=== PATIENT | male | born 1960 | race Caucasian/White ===

== ENCOUNTER 2016-07-24 01:06 | Inpatient (IN) | payer MEDICARE ==
--- NOTE | 2016-07-24 01:36 | ER Document Report ---
ED Medical Screen (RME) - General Stated Complaint: LACERATIONS SWELLING OF LEGS Time seen by provider: 01:31 Mode of Arrival: Wheelchair Information source: Patient Notes: 56-year-old male presents to ED after not responding to his son for 4 days his and have not heard from him for 2 days. When someone went over to his house he was covered in blood make it and incoherent. He is able to speak to me by these in the RME son states he does have a history of diabetes. The last time he was like this in [place] he found out he had diabetes and he was admitted to the hospital instructed to the bed for week. He is also on several pain medicines son states he cannot find any of his medicines. Son states he is on pain medicine for some type of spinal procedures several years ago. He walks with a walker at home but he lives alone. Son states when he first went to the house he was not responding but now he is talking. He is aware he is at the hospital now he and his aware who his son is but is not able to tell me that time a year. I have greeted and performed a rapid initial assessment of this patient. A comprehensive ED assessment and evaluation of the patient, analysis of test results and completion of medical decision making process will be conducted by an additional ED providers. Physical Exam - Vital signs Vitals: Temp Pulse Resp BP Pulse Ox 97.4 F 110 H 16 115/53 L 97 07/24/16 01:12 07/24/16 01:12 07/24/16 01:12 07/24/16 01:12 07/24/16 01:12 Course - Vital Signs Vital signs: Temp Pulse Resp BP Pulse Ox 97.4 F 110 H 16 115/53 L 97 07/24/16 01:12 07/24/16 01:12 07/24/16 01:12 07/24/16 01:12 07/24/16 01:12
[2016-07-24 02:40] LABS: ABSOLUTE EOSINOPHILS # (AUTO) 0.1 10^3/uL (0.0-0.6); ABSOLUTE LYMPHOCYTES (AUTO) 0.7 10^3/uL (0.5-4.7); ABSOLUTE MONOCYTES (AUTO) 1.3 10^3/uL (0.1-1.4); ABSOLUTE NEUT (AUTO) 6.4 10^3/uL (1.7-8.2); BASOPHILS % (AUTO) 0.3 % (0-2); EOSINOPHILS % (AUTO) 0.9 % (0-6); HEMATOCRIT 36.4 % (37.9-51.0); HEMOGLOBIN 12.2 g/dL (13.5-17.0); HGB HCT DIFFERENCE 0.2; LYMPHOCYTES % (AUTO) 8.1 % (13-45); MEAN CORPUSCULAR HEMOGLOBIN 34.5 pg (27.0-33.4); MEAN CORPUSCULAR HGB CONC 33.4 g/dL (32.0-36.0); MEAN CORPUSCULAR VOLUME 103 fl (80-97); MONOCYTES % (AUTO) 15.3 % (3-13); RED BLOOD COUNT 3.52 10^6/uL (4.35-5.55); RED CELL DISTRIBUTION WIDTH 14.8 % (11.5-14.0); SEGMENTED NEUTROPHILS % (AUTO) 75.4 % (42-78); WHITE BLOOD COUNT 8.4 10^3/uL (4.0-10.5)
[2016-07-24 02:45] LABS: APPEARANCE,URINE SLIGHTLY-CLOUDY; BILIRUBIN,URINE NEGATIVE (NEGATIVE); GLUCOSE, URINE NEGATIVE (NEGATIVE); KETONES,URINE TRACE mg/dL (NEGATIVE); LEUKOCYTE ESTERASE,URINE TRACE (NEGATIVE); NITRITE,URINE NEGATIVE (NEGATIVE); PROTEIN,URINE 30 mg/dL (NEGATIVE); URINE SPECIFIC GRAVITY 1.012; UROBILINOGEN,URINE NEGATIVE mg/dL (<2.0)
[2016-07-24 02:52] LABS: ALANINE AMINOTRANSFERASE 108 U/L (21-72); ALBUMIN 4.3 g/dL (3.5-5.0); ALKALINE PHOSPHATASE 123 U/L (38-126); ASPARTATE AMINO TRANSFERASE 110 U/L (17-59); BILIRUBIN,TOTAL 1.3 mg/dL (0.2-1.3); CALCIUM 8.9 mg/dL (8.4-10.2); CHLORIDE 105 mmol/L (98-107); CREATININE RESULT 3.94 mg/dL (0.52-1.25); GLUCOSE 134 mg/dL (75-110); LIPASE 132.2 U/L (23-300); TOTAL PROTEIN 9.1 g/dL (6.3-8.2)
[2016-07-24 02:56] LABS: ALCOHOL < 10 mg/dL (NONE DETECTED)
[2016-07-24 03:01] LABS: URINE BARBITURATES SCREEN NEGATIVE; URINE METHADONE SCREEN NEGATIVE; URINE OPIATES LOW UNCONFIRMED POSITIVE; URINE PHENCYCLIDINE SCREEN NEGATIVE
[2016-07-24 03:03] LABS: CARBON DIOXIDE 13 mmol/L (22-30)
[2016-07-24 03:20] LABS: ANION GAP 27 (5-19)
[2016-07-24 03:24] LABS: BLOOD UREA NITROGEN 135 mg/dL (7-20)
[2016-07-24 03:26] LABS: POTASSIUM 6.3 mmol/L (3.6-5.0)
[2016-07-24] MEDS ORDERED: NORMAL SALINE 1000 ML 1,000 ML IV ONE ×2 (07:05)
[2016-07-24] MEDS ORDERED: DEXTROSE 50%-WATER 25 GM/50 ML DISP.SYRIN IV ONE (07:19)
[2016-07-24] MEDS ORDERED: INSULIN REG, HUMAN 100 UNIT/ML 3 ML VIAL (PYX) IV ONE (07:19)
[2016-07-24] MEDS ORDERED: CALCIUM GLUCONATE 1000 MG/10 ML INJ IV ONE (07:19)
--- NOTE | 2016-07-24 08:16 | EKG REPORT ---
SEVERITY:- BORDERLINE ECG - SINUS TACHYCARDIA BORDERLINE PROLONGED QT INTERVAL : Confirmed by: Silva Gastelum MD 24-Jul-2016 08:16:12
[2016-07-24 09:00] LABS: PROTHROMBIN TIME 15.1 SEC (11.4-15.4)
[2016-07-24 09:01] LABS: PARTIAL THROMBOPLASTIN TIME 35.3 SEC (23.5-35.8)
[2016-07-24 09:16] LABS: ALCOHOL < 10 mg/dL (NONE DETECTED)
[2016-07-24 09:25] LABS: CREATINE KINASE 2411 U/L (55-170)
[2016-07-24 09:27] LABS: TROPONIN I 0.041 ng/mL
[2016-07-24] MEDS ORDERED: NORMAL SALINE 1000 ML 1,000 ML IV PRN ×2 (09:58→14:03)
[2016-07-24 10:19] LABS: VENOUS BLOOD BASE EXCESS -10.8 mmol/L; VENOUS BLOOD HCO3 15.9 mmol/L (20-32); VENOUS BLOOD PCO2 38.6 mmHg (35-63); VENOUS BLOOD PH 7.23 (7.30-7.42)
--- NOTE | 2016-07-24 10:44 | ER Document Report ---
ED General - General Chief Complaint: Altered Mental Status Stated Complaint: LACERATIONS SWELLING OF LEGS Mode of Arrival: Wheelchair - HPI Patient complains to provider of: altered mental status Notes: Patient's coming in for evaluation of altered mental status. According son at bedside patient recently moved from [place]. Patient has a history of alcohol abuse diabetes hypertension chronic pain and takes morphine. Possibility other medical problems this is very limited as to son does not know the patient's full medical history Patient was on her to offer approximate 2 days the police recall found the patient naked on his couch with multiple abrasions to himself lying in some blood. Patient was found confused transport to the ER for further evaluation. Upon my evaluation patient is confused a no 1-2 patient is alert. GCS is 14. Patient has had multiple abrasions with bilateral lower leg edema. Patient has no complaints Past Medical History - General Information source: Patient - Social History Smoking Status: Unknown if Ever Smoked Family History: Reviewed & Not Pertinent Endocrine Medical History: Reports: Hx Diabetes Mellitus Type 2 Renal/ Medical History: Denies: Hx Peritoneal Dialysis Past Surgical History: Reports: Hx Orthopedic Surgery - Immunizations Hx Diphtheria, Pertussis, Tetanus Vaccination: Yes Review of Systems - Review of Systems -: Yes ROS unobtainable due to patient's medical condition - Altered mental status Physical Exam - Vital signs Vitals: Temp Pulse Resp BP Pulse Ox 97.4 F 110 H 16 115/53 L 97 07/24/16 01:12 07/24/16 01:12 07/24/16 01:12 07/24/16 01:12 07/24/16 01:12 Interpretation: Tachycardic - General General appearance: Other - Patient is unkempt a she will multiple abrasions patient smells bad - HEENT Head: Normocephalic, Atraumatic Eyes: Normal Pupils: PERRL - Respiratory Respiratory status: No respiratory distress Chest status: Nontender Breath sounds: Normal Chest palpation: Normal - Cardiovascular Rhythm: Regular Heart sounds: Normal auscultation Murmur: No - Abdominal Inspection: Normal Distension: Fluid wave - Ascites Bowel sounds: Normal Tenderness: Nontender Organomegaly: No organomegaly - Rectal Stool: Heme positive - Grossly negative on rectal exam light brown stool Hemorrhoids: None Prostate: Normal - Genitourinary Inspection: Normal Tenderness: Nontender Cremasteric reflex: Normal Scrotum: Normal Notes: Patient with erythema in the bilateral groin region consistent with possible harsh yeast infection or signs of overt gangrene for Rohan's gangrene - Back Back: Normal, Nontender - Extremities General upper extremity: Nontender, Normal color, Normal ROM, Normal temperature , Other. No: Normal inspection - multiple superficial abrasions General lower extremity: Nontender, Edema - 2+, Normal ROM, Normal temperature, Normal weight bearing. 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 More likely this is from dehydration and being immobile. Patient was given calcium gluconate IV fluids insulin and dextrose. 4 hyperkalemia. Aggressive fluid hydrated was begun. I did perform a CT of the patient's head and abdomen these were negative for any acute pathology. Patient 's case was referred to hospitals for further evaluation - Vital Signs Vital signs: Temp Pulse Resp BP Pulse Ox 97.4 F 110 H 12 116/58 L 96 07/24/16 01:12 07/24/16 01:12 07/24/16 12:01 07/24/16 12:01 07/24/16 12:01 - Laboratory Result Diagrams: 07/24/16 02:19 07/24/16 02:19 Laboratory results interpreted by me: 07/24/16 07/24/16 07/24/16 01:37 01:47 02:19 RBC 3.52 L Hgb 12.2 L Hct 36.4 L MCV 103 H MCH 34.5 H RDW 14.8 H Lymphocytes % 8.1 L Monocytes % 15.3 H VBG pH VBG HCO3 Potassium Carbon Dioxide Anion Gap BUN Creatinine Est GFR ( Amer) Est GFR (Non-Af Amer) Glucose POC Glucose 125 H 128 H Hemoglobin A1c % AST ALT Creatine Kinase CK-MB (CK-2) Total Protein Urine Protein Urine Ketones Urine Blood Ur Leukocyte Esterase Salicylates Acetaminophen 07/24/16 07/24/16 07/24/16 02:19 02:19 08:30 RBC Hgb Hct MCV MCH RDW Lymphocytes % Monocytes % VBG pH VBG HCO3 Potassium 6.3 H* Carbon Dioxide 13 L Anion Gap 27 H BUN 135 H Creatinine 3.94 H Est GFR ( Amer) 19 L Est GFR (Non-Af Amer) 16 L Glucose 134 H POC Glucose Hemoglobin A1c % 6.2 H AST 110 H ALT 108 H Creatine Kinase CK-MB (CK-2) Total Protein 9.1 H Urine Protein 30 H Urine Ketones TRACE H Urine Blood MODERATE H Ur Leukocyte Esterase TRACE H Salicylates Acetaminophen < 10 L 07/24/16 07/24/16 07/24/16 08:30 08:30 09:35 RBC Hgb Hct MCV MCH RDW Lymphocytes % Monocytes % VBG pH 7.23 L VBG HCO3 15.9 L Potassium Carbon Dioxide Anion Gap BUN Creatinine Est GFR ( Amer) Est GFR (Non-Af Amer) Glucose POC Glucose Hemoglobin A1c % AST ALT Creatine Kinase 2411 H CK-MB (CK-2) 23.00 H Total Protein Urine Protein Urine Ketones Urine Blood Ur Leukocyte Esterase Salicylates < 1.0 L Acetaminophen < 10 L Critical Care Note - Critical Care Note Total time excluding time spent on procedures (mins): 35 Comments: Multiple evaluations for severe dehydration and altered mental status hyperkalemia Discharge - Discharge Clinical Impression: Abrasions of multiple sites, Uremia, Elevated CK, chronic opiate use, Hyperkalemia Altered mental status Qualifiers: Altered mental status type: unspecified Qualified Code(s): R41.82 - Altered mental status, unspecified Acute renal failure Qualifiers: Acute renal failure type: unspecified Qualified Code(s): N17.9 - Acute kidney failure, unspecified Chronic back pain Qualifiers: Back pain location: back pain in unspecified location Back pain laterality: unspecified Qualified Code(s): M54.9 - Dorsalgia, unspecified Disposition: ADMITTED INPATIENT Admitting Provider: Hospitalist [facility] Unit Admitted: [facility]
[2016-07-24] MEDS ORDERED: ONDANSETRON HCL INJ/PF 4 MG/2 ML SDV IV PRN (14:03)
[2016-07-24] MEDS ORDERED: DEXTROSE 50%-WATER 25 GM/50 ML DISP.SYRIN IV PRN ×2 (14:16)
[2016-07-24] MEDS ORDERED: DEXTROSE 40% GEL 15 GM TUBE PO PRN ×2 (14:16)
[2016-07-24] MEDS ORDERED: GLUCAGON,HUMAN RECOMB 1 MG INJ IM PRN (14:16)
--- NOTE | 2016-07-24 14:45 | PDOC H&P ---
History of Present Illness Admission Date/PCP: 07/24/16 11:29 Patient complains of: Altered mental status History of Present Illness: LAMONTE PENN is a 56 year old male, with history of alcohol abuse, narcotic dependency due to chronic pain syndrome brought about by injury to the spine and neck fusion was found at home by the family on the floor with altered mental status. Apparently the patient has not been responding to his phone calls. Likewise he has not called anyone in the family which is unusual for him for the last 2 days. Eventually his son went to his house and he was found on the floor unresponsive. There are scattered blood on the floor noted as the patient's scratches his skin due to chronic neuropathy. Patient does not remember the episode. For the past 3 days however he feels lightheaded and dizzy. He does not remember falling. He denies chest pain or shortness of breath. He denies diarrhea or nausea or vomiting. Likewise no melena or hematochezia or hematemesis. He was brought to the emergency room where he was given intravenous fluids. He started to improve and was able to give some information as stated above. However he remains confused. Daughter is at bedside who provided most of the information. In the emergency room creatinine was elevated as well as potassium. Patient was given insulin and D50, IV fluid hydration, and calcium intravenously. He was then referred for admission. Past Medical History Past Medical History: Medication reconciliation pending verification from the patient's pharmacist. Family reports the patient takes metformin, Requip, MS Contin, morphine. Cardiac Medical History: Reports: Hypertension Neurological Medical History: Reports: Other - Restless leg syndrome Endocrine Medical History: Reports: Diabetes Mellitus Type 2 Musculoskeltal Medical History: Reports: Other - Chronic pain syndrome with neuropathic pain Skin Medical History: Reports: Psoriasis Psychiatric Medical History: Reports: Other - Alcohol and narcotic use Past Surgical History Past Surgical History: Reports: Orthopedic Surgery - Spinal fusion cervical spine Social History Information Source: Relative Smoking Status: Current Every Day Smoker Frequency of Alcohol Use: Heavy Hx Recreational Drug Use: No - denies Drugs: None - Advance Directive Resuscitation Status: Full Code Family History Family History: CVA, Other - Heart disease Parental Family History Reviewed: Yes Children Family History Reviewed: Yes Sibling(s) Family History Reviewed.: Yes Review of Systems Constitutional: PRESENT: weakness - Generalized. ABSENT: chills, fever(s), headache(s), night sweats, weight gain, weight loss Eyes: ABSENT: visual disturbances Ears: ABSENT: hearing changes Nose, Mouth, and Throat: PRESENT: other - Dryness in the throat. ABSENT: mouth pain, sore throat Cardiovascular: ABSENT: chest pain, dyspnea on exertion, edema, orthropnea, palpitations Respiratory: ABSENT: cough, dyspnea, hemoptysis Gastrointestinal: ABSENT: abdominal pain, constipation, diarrhea, hematemesis, hematochezia, melena, nausea, vomiting Genitourinary: ABSENT: dysuria, hematuria Musculoskeletal: ABSENT: joint swelling Integumentary: PRESENT: pruritus - Generalized, rash - Generalized. ABSENT: wounds Neurological: PRESENT: dizziness, weakness - Generalized. ABSENT: abnormal gait , abnormal speech, confusion, focal weakness, syncope Psychiatric: ABSENT: anxiety, depression, homidical ideation, suicidal ideation Endocrine: ABSENT: cold intolerance, heat intolerance, polydipsia, polyuria Hematologic/Lymphatic: PRESENT: easy bleeding. ABSENT: easy bruising Physical Exam Vital Signs: Temp Pulse Resp BP Pulse Ox 97.4 F 110 H 12 116/58 L 96 07/24/16 01:12 07/24/16 01:12 07/24/16 12:01 07/24/16 12:01 07/24/16 12:01 Intake & Output 07/23/16 07/24/16 07/25/16 06:59 06:59 06:59 Output Total 650 Balance -650 General appearance: PRESENT: no acute distress, cooperative, disheveled Head exam: PRESENT: normocephalic Eye exam: PRESENT: EOMI, PERRLA Ear exam: PRESENT: normal external ear exam. ABSENT: drainage Mouth exam: PRESENT: dry mucosa, neck supple, tongue midline Throat exam: PRESENT: post pharyngeal erythema. ABSENT: tonsillar erythema, tonsillar exudate Neck exam: ABSENT: carotid bruit, JVD, thyromegaly Respiratory exam: PRESENT: clear to auscultation minor, unlabored. ABSENT: rales , rhonchi, wheezes Cardiovascular exam: PRESENT: RRR, tachycardia. ABSENT: diastolic murmur, rubs , systolic murmur Pulses: PRESENT: normal dorsalis pedis pul Vascular exam: PRESENT: normal capillary refill GI/Abdominal exam: PRESENT: distended, hyperactive bowel sounds, soft. ABSENT: guarding, mass, organolmegaly - Exam is limited to the abdominal, rebound, tenderness Rectal exam: PRESENT: deferred Extremities exam: PRESENT: full ROM, other - Trace lower extremity edema bilateral. ABSENT: calf tenderness, clubbing Neurological exam: PRESENT: alert, awake, oriented to person, oriented to situation. ABSENT: oriented to place, oriented to time Psychiatric exam: PRESENT: appropriate affect, normal mood. ABSENT: homicidal ideation, suicidal ideation Skin exam: PRESENT: dry, warm, other - Redness noted rash in both groins bilaterally, multiple scratches both upper and lower extremities bilaterally with dried blood. ABSENT: cyanosis, rash Results Impressions: Chest X-Ray 07/24/16 07:39 IMPRESSION: Cardiomegaly. Lower cervical fusion. No acute findings Head CT 07/24/16 07:39 IMPRESSION: No acute abnormality in the brain. Limited or Localized CT 07/24/16 07:39 IMPRESSION: Cirrhosis. Small umbilical hernia. No acute findings. Assessment & Plan - Diagnosis (1) Acute renal failure Qualifiers: Acute renal failure type: unspecified Qualified Code(s): N17.9 - Acute kidney failure, unspecified Is this a current diagnosis for this admission?: Yes (2) Altered mental status Qualifiers: Altered mental status type: unspecified Qualified Code(s): R41.82 - Altered mental status, unspecified Is this a current diagnosis for this admission?: Yes (3) Hyperkalemia Is this a current diagnosis for this admission?: Yes (4) Chronic back pain Qualifiers: Back pain location: back pain in unspecified location Back pain laterality: unspecified Qualified Code(s): M54.9 - Dorsalgia, unspecified; G89.29 - Other chronic pain Is this a current diagnosis for this admission?: Yes (5) Elevated CK Is this a current diagnosis for this admission?: Yes (6) Abnormal urinalysis Is this a current diagnosis for this admission?: Yes (7) Heme positive stool Is this a current diagnosis for this admission?: Yes (8) Restless leg syndrome Is this a current diagnosis for this admission?: Yes (9) Type II diabetes mellitus Qualifiers: Diabetes mellitus complication status: with unspecified complications Diabetes mellitus care home insulin use: without exterminator helper termite use Qualified Code(s): E11.8 - Type 2 diabetes mellitus with unspecified complications Is this a current diagnosis for this admission?: Yes (10) Neuropathic pain Is this a current diagnosis for this admission?: Yes (11) Hypertension Qualifiers: Hypertension type: essential hypertension Qualified Code(s): I10 - Essential (primary) hypertension Is this a current diagnosis for this admission?: Yes (12) Psoriasis Is this a current diagnosis for this admission?: Yes - Time Time Spent: 50 to 70 Minutes - Plan Summary Plan Summary: The patient will be admitted to [facility]. We will hydrate the patient with normal saline. We will repeat check potassium and treat accordingly if it's still elevated. In the meantime I will consult nephrology. We will obtain a renal ultrasound. We will monitor creatinine. We will culture his urine and begin ceftriaxone. We will monitor for withdrawal. Begin supplemental thiamine and multivitamin. As needed Ativan will be given for withdrawal symptoms. We will put the patient on intravenous proton pump inhibitor. We will monitor hemoglobin and hematocrit. We will give vitamin A and D to the patient's rash on both upper and lower extremities. Lotrisone cream to the groin also be started. He will be on sliding scale insulin. DVT prophylaxis with heparin will be placed. Further testing depends on initial evaluation as outlined above.
[2016-07-24] MEDS ORDERED: PANTOPRAZOLE SODIUM 40 MG VIAL IV ONE (15:30)
[2016-07-24] MEDS ORDERED: CEFTRIAXONE 1 GM/D5W RTU 1 GM/50 ML RTUPB IV ONE (16:00)
[2016-07-24] MEDS: DOCUSATE SODIUM 100 MG CAPSULE PO SCH (16:42)
[2016-07-24] MEDS: OXYCODONE HCL IR 5 MG TABLET PO PRN ×2 (16:42→21:00)
[2016-07-24] MEDS: LORAZEPAM INJ 2 MG/1 ML VIAL IV PRN ×2 (17:02→21:10)
[2016-07-24 17:58] LABS: CALCIUM 8.4 mg/dL (8.4-10.2); CREATININE RESULT 2.42 mg/dL (0.52-1.25); GLUCOSE 143 mg/dL (75-110)
[2016-07-24] MEDS ORDERED: NORMAL SALINE 1000 ML 1,000 ML with THIAMINE HCL 100 MG, MVI, ADULT NO.1 WITH VIT K 10 ML IV PRN ×3 (18:00)
[2016-07-24 18:10] LABS: CARBON DIOXIDE 13 mmol/L (22-30); CHLORIDE 111 mmol/L (98-107); POTASSIUM 5.6 mmol/L (3.6-5.0); SODIUM 146.9 mmol/L (137-145)
[2016-07-24 18:14] LABS: ANION GAP 23 (5-19)
[2016-07-24 18:15] LABS: BLOOD UREA NITROGEN 105 mg/dL (7-20)
[2016-07-24] MEDS ORDERED: SODIUM POLYSTYRENE SULFONATE 15 GM/60 ML PO ONE (19:14)
[2016-07-24] MEDS ORDERED: ROPINIROLE HCL 2 MG TABLET PO SCH (23:59)
[2016-07-25] MEDS ORDERED: ROPINIROLE HCL 2 MG TABLET ONE (00:04)
[2016-07-25] MEDS: HEPARIN SOD (PORCINE) 5,000 UNIT/ML 1 ML SYRINGE SUBCUT SCH ×4 (01:56→22:15)
[2016-07-25] MEDS: LORAZEPAM INJ 2 MG/1 ML VIAL IV PRN ×4 (02:32→19:42)
[2016-07-25 06:25] LABS: ABSOLUTE BASOPHILS # (AUTO) 0.1 10^3/uL (0.0-0.2); ABSOLUTE EOSINOPHILS # (AUTO) 0.1 10^3/uL (0.0-0.6); ABSOLUTE LYMPHOCYTES (AUTO) 0.6 10^3/uL (0.5-4.7); BASOPHILS % (AUTO) 1.4 % (0-2); HEMATOCRIT 33.3 % (37.9-51.0); HEMOGLOBIN 11.4 g/dL (13.5-17.0); HGB HCT DIFFERENCE 0.9; MEAN CORPUSCULAR HEMOGLOBIN 35.2 pg (27.0-33.4); MEAN CORPUSCULAR HGB CONC 34.2 g/dL (32.0-36.0); MEAN CORPUSCULAR VOLUME 103 fl (80-97); MONOCYTES % (AUTO) 14.2 % (3-13); RED BLOOD COUNT 3.23 10^6/uL (4.35-5.55); RED CELL DISTRIBUTION WIDTH 15.1 % (11.5-14.0); SEGMENTED NEUTROPHILS % (AUTO) 74.4 % (42-78); WHITE BLOOD COUNT 6.7 10^3/uL (4.0-10.5)
[2016-07-25 06:46] LABS: CALCIUM 9.3 mg/dL (8.4-10.2); CHLORIDE 116 mmol/L (98-107); CREATININE RESULT 1.41 mg/dL (0.52-1.25); GLUCOSE 183 mg/dL (75-110)
[2016-07-25 07:07] LABS: BLOOD UREA NITROGEN 69 mg/dL (7-20)
[2016-07-25 07:18] LABS: CARBON DIOXIDE 13 mmol/L (22-30); SODIUM 153.1 mmol/L (137-145)
[2016-07-25 07:20] LABS: ANION GAP 24 (5-19); POTASSIUM 6.2 mmol/L (3.6-5.0)
[2016-07-25] MEDS ORDERED: 1/2 NORMAL SALINE 1,000 ML IV PRN (07:43)
[2016-07-25] MEDS ORDERED: INSULIN REG, HUMAN 100 UNIT/ML 3 ML VIAL (PYX) IV ONE ×2 (07:44→11:15)
[2016-07-25] MEDS ORDERED: DEXTROSE 50%-WATER 25 GM/50 ML DISP.SYRIN IV ONE ×3 (07:45→11:15)
[2016-07-25] MEDS ORDERED: SODIUM POLYSTYRENE SULFONATE 15 GM/60 ML PO ONE ×3 (07:45→11:15)
[2016-07-25] MEDS ORDERED: SODIUM BICARBONATE 8.4% INJ 10 MEQ/10 ML DISP.SYRIN IV ONE ×2 (07:46→11:15)
[2016-07-25] MEDS ORDERED: NORMAL SALINE 1000 ML 1,000 ML with THIAMINE HCL 100 MG, MVI, ADULT NO.1 WITH VIT K 10 ... IV PRN ×4 (08:27)
--- NOTE | 2016-07-25 08:40 | PDOC PROGRESS REPORT ---
Subjective Progress Note for:: 07/25/16 Subjective:: Patient is restless. Patient reports getting aches and pain all over. Patient gets morphine extended release and oxycodone. Dosages were obtained from his pharmacist. No respiratory or temperature spikes reported. No diarrhea. No nausea or vomiting. No reported tremors, nor hallucinations. Physical Exam Vital Signs: Temp Pulse Resp BP Pulse Ox 97.3 F 110 H 23 H 158/91 H 85 L 07/25/16 03:20 07/24/16 01:12 07/25/16 05:01 07/25/16 06:01 07/25/16 05:53 Intake & Output 07/24/16 07/25/16 07/26/16 06:59 06:59 06:59 Output Total 5200 Balance -5200 Weight 115.666 kg General appearance: PRESENT: disheveled, morbidly obese Head exam: PRESENT: normocephalic Eye exam: PRESENT: EOMI Ear exam: ABSENT: drainage Mouth exam: PRESENT: dry mucosa, neck supple Neck exam: ABSENT: JVD Respiratory exam: PRESENT: clear to auscultation minor Cardiovascular exam: PRESENT: RRR. ABSENT: gallop GI/Abdominal exam: PRESENT: distended - Obese, soft. ABSENT: tenderness Extremities exam: PRESENT: pedal edema - Bilateral Neurological exam: PRESENT: alert, awake Focused psych exam: PRESENT: restlessness Skin exam: PRESENT: dry, rash, warm, other - Multiple skin lacerations or excoriations both upper and lower extremities.. ABSENT: cyanosis Results Laboratory Results: 07/25/16 06:15 07/25/16 06:15 07/24/16 07/25/16 07/25/16 17:19 06:15 06:15 WBC 6.7 RBC 3.23 L Hgb 11.4 L Hct 33.3 L MCV 103 H MCH 35.2 H MCHC 34.2 RDW 15.1 H Plt Count 288 Seg Neutrophils % 74.4 Lymphocytes % 9.0 L Monocytes % 14.2 H Eosinophils % 1.0 Basophils % 1.4 Absolute Neutrophils 5.0 Absolute Lymphocytes 0.6 Absolute Monocytes 1.0 Absolute Eosinophils 0.1 Absolute Basophils 0.1 Sodium 146.9 H 153.1 H Potassium 5.6 H 6.2 H* Chloride 111 H 116 H Carbon Dioxide 13 L 13 L Anion Gap 23 H 24 H BUN 105 H D 69 H D Creatinine 2.42 H 1.41 H Est GFR ( Amer) 34 L > 60 Est GFR (Non-Af Amer) 28 L 52 L Glucose 143 H 183 H Calcium 8.4 9.3 Free T4 07/25/16 06:15 WBC RBC Hgb Hct MCV MCH MCHC RDW Plt Count Seg Neutrophils % Lymphocytes % Monocytes % Eosinophils % Basophils % Absolute Neutrophils Absolute Lymphocytes Absolute Monocytes Absolute Eosinophils Absolute Basophils Sodium Potassium Chloride Carbon Dioxide Anion Gap BUN Creatinine Est GFR ( Amer) Est GFR (Non-Af Amer) Glucose Calcium Free T4 1.78 Impressions: Chest X-Ray 07/24/16 07:39 IMPRESSION: Cardiomegaly. Lower cervical fusion. No acute findings Head CT 07/24/16 07:39 IMPRESSION: No acute abnormality in the brain. Limited or Localized CT 07/24/16 07:39 IMPRESSION: Cirrhosis. Small umbilical hernia. No acute findings. Assessment & Plan - Diagnosis (1) Acute renal failure Qualifiers: Acute renal failure type: unspecified Qualified Code(s): N17.9 - Acute kidney failure, unspecified Is this a current diagnosis for this admission?: Yes (2) Altered mental status Qualifiers: Altered mental status type: unspecified Qualified Code(s): R41.82 - Altered mental status, unspecified Is this a current diagnosis for this admission?: Yes (3) Hyperkalemia Is this a current diagnosis for this admission?: Yes (4) Chronic back pain Qualifiers: Back pain location: back pain in unspecified location Back pain laterality: unspecified Qualified Code(s): M54.9 - Dorsalgia, unspecified; G89.29 - Other chronic pain Is this a current diagnosis for this admission?: Yes (5) Elevated CK Is this a current diagnosis for this admission?: Yes (6) Abnormal urinalysis Is this a current diagnosis for this admission?: Yes (7) Heme positive stool Is this a current diagnosis for this admission?: Yes (8) Restless leg syndrome Is this a current diagnosis for this admission?: Yes (9) Type II diabetes mellitus Qualifiers: Diabetes mellitus complication status: with unspecified complications Diabetes mellitus half-way insulin use: without half-way use Qualified Code(s): E11.8 - Type 2 diabetes mellitus with unspecified complications; 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 I will put the patient on sodium bicarbonate drip, and D5W at the same time. Monitor electrolytes and creatinine. Case discussed with nephrology service. Restart his morphine and oxycodone. Continue when necessary Ativan for now.
[2016-07-25] MEDS ORDERED: DEXTROSE 5%-WATER 1000 ML 1,000 ML IV PRN ×2 (08:42→15:40)
[2016-07-25] MEDS: PANTOPRAZOLE SODIUM 40 MG VIAL IV SCH ×2 (08:43→18:09)
[2016-07-25] MEDS ORDERED: DEXTROSE 5%-WATER 1000 ML 1,000 ML with SODIUM BICARBONATE 150 MEQ IV PRN ×4 (08:46→15:41)
[2016-07-25] MEDS ORDERED: LORAZEPAM INJ 2 MG/1 ML VIAL ONE ×2 (09:51→15:58)
[2016-07-25] MEDS: MORPHINE SULFATE SR 30 MG TABLET PO SCH ×2 (09:58→21:25)
[2016-07-25] MEDS: OXYCODONE HCL IR 5 MG TABLET PO PRN ×2 (09:59→20:40)
[2016-07-25] MEDS: CEFTRIAXONE 1 GM/D5W RTU 1 GM/50 ML RTUPB IV SCH (11:43)
[2016-07-25] MEDS: CLOTRIMAZOLE/BETAMETHASONE DIP CREAM 15 GM TOP SCH ×2 (12:21→18:13)
[2016-07-25] MEDS: MINERAL OIL/PETROLATUM,WHITE CREAM 114 GM TP SCH ×2 (12:22→18:10)
[2016-07-25] MEDS: DOCUSATE SODIUM 100 MG CAPSULE PO SCH ×2 (12:32→18:20)
[2016-07-25] MEDS: LORAZEPAM INJ 2 MG/1 ML VIAL IV SCH ×3 (12:32→23:40)
[2016-07-25] MEDS ORDERED: INFLUENZA ADLT QUAD (36MOS+) 2016-17 VAC 0.5 ML SYR IM PRN (12:35)
[2016-07-25 14:19] LABS: BLOOD UREA NITROGEN 57 mg/dL (7-20); CALCIUM 9.6 mg/dL (8.4-10.2); GLUCOSE 198 mg/dL (75-110)
[2016-07-25 14:36] LABS: CARBON DIOXIDE 18 mmol/L (22-30); CHLORIDE 117 mmol/L (98-107); POTASSIUM 5.4 mmol/L (3.6-5.0); SODIUM 156.4 mmol/L (137-145)
[2016-07-25 14:39] LABS: ANION GAP 21 (5-19)
--- NOTE | 2016-07-25 16:07 | PDOC CONSULTATION ---
Consultation Consult Date: 07/25/16 Attending physician:: DANAE MCCARTNEY Consult reason:: I was asked by Dr. Mccartney to see the patient this patient because of acute kidney injury and hyperkalemia. History of Present Illness Admission Date/PCP: 07/24/16 14:03 History of Present Illness: LAMONTE PENN is a 56 year old male, with history of alcohol abuse, narcotic dependency due to chronic pain syndrome brought about by injury to the spine and neck fusion was found at home by the family on the floor with altered mental status. Patient is still currently confused and unable to give any reliable history and does not answer questions at this time. History is obtained from records from the emergency room from initial intake by other providers. Apparently the patient has not been responding to his phone calls. Likewise he has not called anyone in the family which is unusual for him for the last 2 days. Eventually his son went to his house and he was found on the floor unresponsive. There are scattered blood on the floor noted as the patient 's scratches his skin due to chronic neuropathy. Patient does not remember the episode. For the past 3 days however he feels lightheaded and dizzy. He does not remember falling. He denies chest pain or shortness of breath. He denies diarrhea or nausea or vomiting. Likewise no melena or hematochezia or hematemesis. He was brought to the emergency room where he was given intravenous fluids. He started to improve and was able to give some information as stated above. However he remains confused. Daughter was at bedside who provided most of the information earlier. In the emergency room creatinine was elevated as well as potassium. Patient was given insulin and D50 , IV fluid hydration, and calcium intravenously. He was then referred for admission. When the patient came in he was hypertensive with blood pressure of 159/114. His initial BUN and creatinine were 135 and 3.94 which improved to current BUN of 57 and creatinine of 1.2 after IV fluid hydration. He was given at least 3 L of IV fluid bolus in the emergency room. He also came in with the potassium was high as 6.3 and most recent one is 5.4. Patient was given D50/ 50, insulin , calcium gluconate, and Kayexalate. He is having good bowel movement so Kayexalate is working. He also has a mildly elevated CK positive blood in the urine with normal red blood cells from urinalysis. This morning Dr. Mccartney called me and we discussed the case. I recommended the bicarbonate drip as well as D5 water to prevent further hypernatremia while improving kidney function and potassium levels. Currently the patient is in restraints and is still grossly confused. Past Medical History Cardiac Medical History: Reports: Hypertension-primary Neurological Medical History: Reports: Other - Restless leg syndrome Endocrine Medical History: Reports: Diabetes Mellitus Type 2 Musculoskeltal Medical History: Reports: Other - Chronic pain syndrome with neuropathic pain Skin Medical History: Reports: Psoriasis Psychiatric Medical History: Reports: Other - Alcohol and narcotic use Past Surgical History Past Surgical History: Reports: Orthopedic Surgery - Spinal fusion cervical spine Social History Lives with: Family Smoking Status: Current Every Day Smoker Frequency of Alcohol Use: Heavy Hx Recreational Drug Use: No - denies Drugs: None - Advance Directive Resuscitation Status: Full Code Family History Family History: Other - Unobtainable at this time due to patient's mental status Parental Family History Reviewed: No Children Family History Reviewed: No Sibling(s) Family History Reviewed.: No Medication/Allergy Home Medications: Lisinopril [Prinivil] 20 mg PO DAILY 07/24/16 Metformin HCl [Glucophage] 500 mg PO BIDBS 07/24/16 Morphine Sulfate [Morphine Sulfate ER] 30 mg PO Q12 07/24/16 Oxycodone HCl 20 mg PO Q6HP PRN 07/24/16 Ropinirole HCl [Requip] 4 mg PO TID 07/24/16 Sildenafil Citrate [Viagra] 100 mg PO DAILY 07/24/16 Triamcinolone Acetonide [Aristocort 0.1% Cream 15 gm] 1 applic TP BID 07/24/16 Allergies/Adverse Reactions: No Known Allergies Allergy (Unverified 07/24/16 15:21) Review of Systems ROS unobtainable: Due to mental status Physical Exam Vital Signs: Temp Pulse Resp BP Pulse Ox 99.6 F 116 H 20 125/65 96 07/25/16 11:55 07/25/16 13:01 07/25/16 11:55 07/25/16 11:55 07/25/16 11:55 Intake & Output 07/24/16 07/25/16 07/26/16 06:59 06:59 06:59 Intake Total 120 Output Total 5200 1600 Balance -5200 -1480 Weight 115.666 kg 116.1 kg Exam: General appearance: no acute distress, mildly agitated on restraints, well- developed, well-nourished Head exam: PRESENT: atraumatic, normocephalic Eye exam: PRESENT: Conjunctiva [place], EOMI, PERRLA. ABSENT: conjunctival injection, scleral icterus Mouth exam: PRESENT: moist, neck supple, tongue midline Neck exam: PRESENT: full ROM. ABSENT: carotid bruit, JVD, lymphadenopathy, thyromegaly Respiratory exam: PRESENT: Diminished to auscultation bilaterally. ABSENT: rales, rhonchi, stridor, wheezes Cardiovascular exam: PRESENT: RRR, +S1, +S2. ABSENT: systolic murmur Pulses: PRESENT: normal radial pulses, normal dorsalis pedis pulses GI/Abdominal exam: PRESENT: normal bowel sounds, soft. ABSENT: guarding, mass, tenderness Rectal exam: deferred Extremities exam: PRESENT: full ROM. ABSENT: calf tenderness, pedal edema Musculoskeletal: PRESENT: full ROM. ABSENT: deformity Neurological exam: PRESENT: Somewhat lethargic, orientation difficult to assess at this time, reflexes normal, CN II-XII grossly intact. ABSENT: motor sensory deficit Psychiatric exam: PRESENT: Patient mildly agitated ABSENT: homicidal ideation, suicidal ideation Skin exam: PRESENT: intact, dry, warm. He has some scaly whitish rash in between scabbing excoriations significantly noted on his left lower extremities and mildly on his upper extremities and feet. Results Laboratory Results: 07/25/16 06:15 07/25/16 13:45 07/24/16 07/25/16 07/25/16 17:19 06:15 06:15 WBC 6.7 RBC 3.23 L Hgb 11.4 L Hct 33.3 L MCV 103 H MCH 35.2 H MCHC 34.2 RDW 15.1 H Plt Count 288 Seg Neutrophils % 74.4 Lymphocytes % 9.0 L Monocytes % 14.2 H Eosinophils % 1.0 Basophils % 1.4 Absolute Neutrophils 5.0 Absolute Lymphocytes 0.6 Absolute Monocytes 1.0 Absolute Eosinophils 0.1 Absolute Basophils 0.1 Sodium 146.9 H 153.1 H Potassium 5.6 H 6.2 H* Chloride 111 H 116 H Carbon Dioxide 13 L 13 L Anion Gap 23 H 24 H BUN 105 H D 69 H D Creatinine 2.42 H 1.41 H Est GFR ( Amer) 34 L > 60 Est GFR (Non-Af Amer) 28 L 52 L Glucose 143 H 183 H Calcium 8.4 9.3 Free T4 07/25/16 07/25/16 06:15 13:45 WBC RBC Hgb Hct MCV MCH MCHC RDW Plt Count Seg Neutrophils % Lymphocytes % Monocytes % Eosinophils % Basophils % Absolute Neutrophils Absolute Lymphocytes Absolute Monocytes Absolute Eosinophils Absolute Basophils Sodium 156.4 H Potassium 5.4 H Chloride 117 H Carbon Dioxide 18 L Anion Gap 21 H BUN 57 H Creatinine 1.20 Est GFR ( Amer) > 60 Est GFR (Non-Af Amer) > 60 Glucose 198 H Calcium 9.6 Free T4 1.78 Impressions: Chest X-Ray 07/24/16 07:39 IMPRESSION: Cardiomegaly. Lower cervical fusion. No acute findings Head CT 07/24/16 07:39 IMPRESSION: No acute abnormality in the brain. Limited or Localized CT 07/24/16 07:39 IMPRESSION: Cirrhosis. Small umbilical hernia. No acute findings. Assessment & Plan - Diagnosis (1) Acute kidney injury Is this a current diagnosis for this admission?: YesPlan: Patient is nonoliguric. He has very minimal trace proteinuria and note of blood in the urine without much red blood cells consistent with possible acute rhabdomyolysis. Patient is also most likely volume depleted and severely dehydrated when he came. He has good response to initial IV fluid hydration. I will continue IV fluid hydration at this time. Continue to monitor kidney function and urine output. Patient does not require any renal replacement therapy urgently at this time. Kidney function currently improving with good response to IV fluid hydration. (2) Acute prerenal azotemia Is this a current diagnosis for this admission?: Yes (3) Rhabdomyolysis Is this a current diagnosis for this admission?: Yes (4) Hyperkalemia Is this a current diagnosis for this admission?: YesPlan: Potassium is improving. The bicarbonate drip should continuously improve this level. I don't think he needs any further Kayexalate at this point. (5) Metabolic acidosis Is this a current diagnosis for this admission?: YesPlan: Continue sodium bicarbonate drip but I will decrease the drip rate to 75 mL per hour in view of the hypernatremia. This is currently improved. (6) Hypernatremia Is this a current diagnosis for this admission?: YesPlan: This is due to solute load and IV fluids. We will also give D5 water at the 100 mL an hour in addition to bicarbonate drip to counteract the sodium load. Continue to monitor her electrolytes. (7) Urinary tract infection Is this a current diagnosis for this admission?: YesPlan: Due to gram-positive cocci in chains. On ceftriaxone. (8) Alcohol abuse Is this a current diagnosis for this admission?: YesPlan: Possible cirrhosis as evidenced by CT scan findings. (9) Altered mental status Qualifiers: Altered mental status type: unspecified Qualified Code(s): R41.82 - Altered mental status, unspecified Is this a current diagnosis for this admission?: YesPlan: Secondary to uremia, dehydration and electrolyte abnormalities. (10) Chronic back pain Qualifiers: Back pain location: back pain in unspecified location Back pain laterality: unspecified Qualified Code(s): M54.9 - Dorsalgia, unspecified; G89.29 - Other chronic pain Is this a current diagnosis for this admission?: Yes (11) Type II diabetes mellitus Qualifiers: Diabetes mellitus complication status: with unspecified complications Diabetes mellitus [facility] insulin use: without [facility] use Qualified Code(s): E11.8 - Type 2 diabetes mellitus with unspecified complications; Z79.4 - halfway (current) use of insulin Is this a current diagnosis for this admission?: Yes (12) Hypertension Qualifiers: Hypertension type: essential hypertension Qualified Code(s): I10 - Essential (primary) hypertension Is this a current diagnosis for this admission?: Yes (13) Psoriasis Is this a current diagnosis for this admission?: Yes - Notes Notes: Thank you very much for this consultation. Discussed the case with Dr. Mccartney this morning. We will follow the patient. - Time Time Spent: Greater than 70 Minutes
[2016-07-25 19:38] LABS: ANION GAP 18 (5-19); BLOOD UREA NITROGEN 49 mg/dL (7-20); CALCIUM 9.5 mg/dL (8.4-10.2); CARBON DIOXIDE 26 mmol/L (22-30); CHLORIDE 116 mmol/L (98-107); CREATININE RESULT 1.13 mg/dL (0.52-1.25); GLUCOSE 187 mg/dL (75-110); POTASSIUM 4.5 mmol/L (3.6-5.0); SODIUM 159.9 mmol/L (137-145)
[2016-07-25] MEDS: ACETAMINOPHEN 325 MG TABLET PO PRN (20:42)
[2016-07-25] MEDS: ROPINIROLE HCL 2 MG TABLET PO SCH (22:41)
[2016-07-26] MEDS: DEXTROSE 5%-WATER 1000 ML 1,000 ML IV PRN ×4 (02:07→23:58)
[2016-07-26] MEDS: LORAZEPAM INJ 2 MG/1 ML VIAL IV PRN ×3 (03:32→21:35)
[2016-07-26] MEDS: OXYCODONE HCL IR 5 MG TABLET PO PRN ×2 (04:03→12:40)
[2016-07-26] MEDS: PANTOPRAZOLE SODIUM 40 MG VIAL IV SCH ×2 (05:40→17:25)
[2016-07-26] MEDS: LORAZEPAM INJ 2 MG/1 ML VIAL IV SCH ×4 (05:40→23:58)
[2016-07-26] MEDS: HEPARIN SOD (PORCINE) 5,000 UNIT/ML 1 ML SYRINGE SUBCUT SCH ×3 (05:40→21:38)
[2016-07-26 07:23] LABS: HEMATOCRIT 33.2 % (37.9-51.0); HEMOGLOBIN 11.3 g/dL (13.5-17.0); HGB HCT DIFFERENCE 0.7; MEAN CORPUSCULAR HEMOGLOBIN 34.8 pg (27.0-33.4); MEAN CORPUSCULAR HGB CONC 34.1 g/dL (32.0-36.0); MEAN CORPUSCULAR VOLUME 102 fl (80-97); RED BLOOD COUNT 3.25 10^6/uL (4.35-5.55); WHITE BLOOD COUNT 6.1 10^3/uL (4.0-10.5)
[2016-07-26 07:48] LABS: ANION GAP 16 (5-19); BLOOD UREA NITROGEN 32 mg/dL (7-20); CARBON DIOXIDE 25 mmol/L (22-30); CHLORIDE 115 mmol/L (98-107); CREATININE RESULT 0.98 mg/dL (0.52-1.25); GLUCOSE 224 mg/dL (75-110); MAGNESIUM 1.9 mg/dL (1.6-2.3); PHOSPHORUS 2.6 mg/dL (2.5-4.5); POTASSIUM 4.1 mmol/L (3.6-5.0); SODIUM 155.5 mmol/L (137-145)
[2016-07-26] MEDS: CEFTRIAXONE 1 GM/D5W RTU 1 GM/50 ML RTUPB IV SCH (09:06)
[2016-07-26] MEDS: MORPHINE SULFATE SR 30 MG TABLET PO SCH ×2 (09:07→21:34)
[2016-07-26] MEDS: CLOTRIMAZOLE/BETAMETHASONE DIP CREAM 15 GM TOP SCH ×2 (09:07→17:26)
[2016-07-26] MEDS: DOCUSATE SODIUM 100 MG CAPSULE PO SCH ×2 (09:08→17:25)
[2016-07-26] MEDS: INSULIN REG, HUMAN 100 UNIT/ML 3 ML VIAL (PYX) SUBCUT PRN ×3 (09:11→22:16)
--- NOTE | 2016-07-26 10:29 | PDOC PROGRESS REPORT ---
Subjective Progress Note for:: 07/26/16 Subjective:: Less agitated today than yesterday as reported. Had bowel movements yesterday from the Kayexalate. No reported nausea or vomiting. Patient still restless intermittently. On scheduled and as needed intravenous Ativan. Patient placed on a bicarbonate drip yesterday and his creatinine now is normal and this was discontinued. Physical Exam Vital Signs: Temp Pulse Resp BP Pulse Ox 99.6 F 111 H 18 161/80 H 100 07/26/16 07:21 07/26/16 07:21 07/26/16 07:21 07/26/16 07:21 07/26/16 07:21 Intake & Output 07/25/16 07/26/16 07/27/16 06:59 06:59 06:59 Intake Total 2877 Output Total 5200 3150 Balance -5200 -273 Weight 115.666 kg 112.8 kg General appearance: PRESENT: morbidly obese, other - Sedated Head exam: PRESENT: normocephalic Eye exam: PRESENT: conjunctiva pale Mouth exam: PRESENT: moist, neck supple Neck exam: ABSENT: JVD Respiratory exam: PRESENT: rhonchi - Minimal. ABSENT: wheezes Cardiovascular exam: PRESENT: RRR. ABSENT: gallop GI/Abdominal exam: PRESENT: distended - Mildly, hyperactive bowel sounds, soft, other - Slightly tympanitic. ABSENT: tenderness Extremities exam: PRESENT: other - Trace edema, multiple skin excoriations unchanged Focused psych exam: PRESENT: restlessness Skin exam: PRESENT: dry, warm. ABSENT: cyanosis Results Laboratory Results: 07/26/16 06:38 07/26/16 06:38 07/25/16 07/25/16 07/26/16 13:45 19:00 06:38 WBC 6.1 RBC 3.25 L Hgb 11.3 L Hct 33.2 L MCV 102 H MCH 34.8 H MCHC 34.1 RDW 15.0 H Plt Count 254 Sodium 156.4 H 159.9 H Potassium 5.4 H 4.5 Chloride 117 H 116 H Carbon Dioxide 18 L 26 Anion Gap 21 H 18 BUN 57 H 49 H Creatinine 1.20 1.13 Est GFR ( Amer) > 60 > 60 Est GFR (Non-Af Amer) > 60 > 60 Glucose 198 H 187 H Calcium 9.6 9.5 Phosphorus Magnesium 07/26/16 06:38 WBC RBC Hgb Hct MCV MCH MCHC RDW Plt Count Sodium 155.5 H Potassium 4.1 Chloride 115 H Carbon Dioxide 25 Anion Gap 16 BUN 32 H Creatinine 0.98 Est GFR ( Amer) > 60 Est GFR (Non-Af Amer) > 60 Glucose 224 H Calcium 9.0 Phosphorus 2.6 Magnesium 1.9 Impressions: Chest X-Ray 07/24/16 07:39 IMPRESSION: Cardiomegaly. Lower cervical fusion. No acute findings Head CT 07/24/16 07:39 IMPRESSION: No acute abnormality in the brain. Limited or Localized CT 07/24/16 07:39 IMPRESSION: Cirrhosis. Small umbilical hernia. No acute findings. Assessment & Plan - Diagnosis (1) Acute renal failure Qualifiers: Acute renal failure type: unspecified Qualified Code(s): N17.9 - Acute kidney failure, unspecified Is this a current diagnosis for this admission?: Yes (2) Altered mental status Qualifiers: Altered mental status type: unspecified Qualified Code(s): R41.82 - Altered mental status, unspecified Is this a current diagnosis for this admission?: Yes (3) Hyperkalemia Is this a current diagnosis for this admission?: Yes (4) Chronic back pain Qualifiers: Back pain location: back pain in unspecified location Back pain laterality: unspecified Qualified Code(s): M54.9 - Dorsalgia, unspecified; G89.29 - Other chronic pain Is this a current diagnosis for this admission?: Yes (5) Elevated CK Is this a current diagnosis for this admission?: Yes (6) Abnormal urinalysis Is this a current diagnosis for this admission?: Yes (7) Heme positive stool Is this a current diagnosis for this admission?: Yes (8) Restless leg syndrome Is this a current diagnosis for this admission?: Yes (9) Type II diabetes mellitus Qualifiers: Diabetes mellitus complication status: with unspecified complications Diabetes mellitus longterm insulin use: without longterm use Qualified Code(s): E11.8 - Type 2 diabetes mellitus with unspecified complications; Z79.4 - [place] (current) use of insulin Is this a current diagnosis for this admission?: Yes (10) Neuropathic pain Is this a current diagnosis for this admission?: Yes (11) Hypertension Qualifiers: Hypertension type: essential hypertension Qualified Code(s): I10 - Essential (primary) hypertension Is this a current diagnosis for this admission?: Yes (12) Psoriasis Is this a current diagnosis for this admission?: Yes - Time Time Spent with patient: 15-24 minutes - Plan Summary Plan Summary: Continue IV hydration and monitor electrolytes. Recheck basic metabolic panel in the morning. In the meantime we'll obtain a KUB, continue the Ativan as well as to supplemental thiamine and folic acid. We will monitor hematocrit. Continue current antibiotics for now and follow cultures.
[2016-07-26] MEDS: MINERAL OIL/PETROLATUM,WHITE CREAM 114 GM TP SCH (17:26)
[2016-07-26] MEDS: ACETAMINOPHEN 325 MG TABLET PO PRN (17:59)
[2016-07-26] MEDS: ROPINIROLE HCL 2 MG TABLET PO SCH (21:33)
[2016-07-27 04:33] LABS: HEMATOCRIT 33.6 % (37.9-51.0); HEMOGLOBIN 11.4 g/dL (13.5-17.0); HGB HCT DIFFERENCE 0.6; MEAN CORPUSCULAR HEMOGLOBIN 34.5 pg (27.0-33.4); MEAN CORPUSCULAR VOLUME 102 fl (80-97); RED BLOOD COUNT 3.31 10^6/uL (4.35-5.55); RED CELL DISTRIBUTION WIDTH 14.5 % (11.5-14.0); WHITE BLOOD COUNT 8.4 10^3/uL (4.0-10.5)
[2016-07-27 04:54] LABS: ANION GAP 17 (5-19); CALCIUM 8.7 mg/dL (8.4-10.2); CARBON DIOXIDE 21 mmol/L (22-30); CHLORIDE 108 mmol/L (98-107); CREATININE RESULT 0.88 mg/dL (0.52-1.25); GLUCOSE 193 mg/dL (75-110); POTASSIUM 3.9 mmol/L (3.6-5.0); SODIUM 146.1 mmol/L (137-145)
[2016-07-27 04:55] LABS: BLOOD UREA NITROGEN 17 mg/dL (7-20)
[2016-07-27] MEDS: PANTOPRAZOLE SODIUM 40 MG VIAL IV SCH ×2 (05:27→17:12)
[2016-07-27] MEDS: LORAZEPAM INJ 2 MG/1 ML VIAL IV SCH ×3 (05:28→21:21)
[2016-07-27] MEDS: HEPARIN SOD (PORCINE) 5,000 UNIT/ML 1 ML SYRINGE SUBCUT SCH ×3 (05:28→21:22)
[2016-07-27] MEDS: DEXTROSE 5%-WATER 1000 ML 1,000 ML IV PRN ×2 (06:22→11:45)
[2016-07-27] MEDS: INSULIN REG, HUMAN 100 UNIT/ML 3 ML VIAL (PYX) SUBCUT PRN ×3 (07:58→22:59)
[2016-07-27] MEDS: ACETAMINOPHEN 325 MG TABLET PO PRN (08:50)
[2016-07-27] MEDS ORDERED: AMPICILLIN SOD/SULBACTAM 1.5 GM VIAL IV SCH (10:00)
[2016-07-27] MEDS ORDERED: LORAZEPAM INJ 2 MG/1 ML VIAL IV PRN (10:01)
--- NOTE | 2016-07-27 10:06 | PDOC PROGRESS REPORT ---
Subjective Progress Note for:: 07/27/16 Subjective:: The patient is more awake and responsive this time. Able to take and tolerate some oral intake. No reported respiratory distress, temperature spikes, nausea or vomiting. Patient has chronic aches and pain. Physical Exam Vital Signs: Temp Pulse Resp BP Pulse Ox 101.0 F H 109 H 22 H 153/89 H 96 07/27/16 07:48 07/27/16 07:48 07/27/16 07:48 07/27/16 07:48 07/27/16 07:48 Intake & Output 07/26/16 07/27/16 07/28/16 06:59 06:59 06:59 Intake Total 2877 3713 Output Total 3150 1550 Balance -273 2163 Weight 112.8 kg 115.3 kg General appearance: PRESENT: no acute distress, other - Mildly sedated Head exam: PRESENT: normocephalic Eye exam: PRESENT: EOMI Mouth exam: PRESENT: moist, neck supple Neck exam: ABSENT: JVD Respiratory exam: PRESENT: clear to auscultation minor, unlabored. ABSENT: rhonchi, wheezes Cardiovascular exam: PRESENT: RRR. ABSENT: gallop GI/Abdominal exam: PRESENT: hypoactive bowel sounds, soft. ABSENT: distended - Obese, tenderness Extremities exam: PRESENT: +1 edema, other - Rash and skin excoriation stable and improved Neurological exam: PRESENT: altered - Lightly sedated Skin exam: PRESENT: dry, warm. ABSENT: cyanosis Results Laboratory Results: 07/27/16 03:58 07/27/16 03:58 07/27/16 07/27/16 03:58 03:58 WBC 8.4 RBC 3.31 L Hgb 11.4 L Hct 33.6 L MCV 102 H MCH 34.5 H MCHC 34.0 RDW 14.5 H Plt Count 247 Sodium 146.1 H Potassium 3.9 Chloride 108 H Carbon Dioxide 21 L Anion Gap 17 BUN 17 Creatinine 0.88 Est GFR ( Amer) > 60 Est GFR (Non-Af Amer) > 60 Glucose 193 H Calcium 8.7 07/24/16 14:50 Mathur Catheter Urine Culture - Final Enterococcus Faecalis(Group D) Impressions: Chest X-Ray 07/24/16 07:39 IMPRESSION: Cardiomegaly. Lower cervical fusion. No acute findings Head CT 07/24/16 07:39 IMPRESSION: No acute abnormality in the brain. Limited or Localized CT 07/24/16 07:39 IMPRESSION: Cirrhosis. Small umbilical hernia. No acute findings. KUB X-Ray 07/26/16 00:00 IMPRESSION: Ileus. Assessment & Plan - Diagnosis (1) Acute renal failure Qualifiers: Acute renal failure type: unspecified Qualified Code(s): N17.9 - Acute kidney failure, unspecified Is this a current diagnosis for this admission?: Yes (2) Altered mental status Qualifiers: Altered mental status type: unspecified Qualified Code(s): R41.82 - Altered mental status, unspecified Is this a current diagnosis for this admission?: Yes (3) Hyperkalemia Is this a current diagnosis for this admission?: Yes (4) Chronic back pain Qualifiers: Back pain location: back pain in unspecified location Back pain laterality: unspecified Qualified Code(s): M54.9 - Dorsalgia, unspecified; G89.29 - Other chronic pain Is this a current diagnosis for this admission?: Yes (5) Elevated CK Is this a current diagnosis for this admission?: Yes (6) Abnormal urinalysis Is this a current diagnosis for this admission?: Yes (7) Heme positive stool Is this a current diagnosis for this admission?: Yes (8) Restless leg syndrome Is this a current diagnosis for this admission?: Yes (9) Type II diabetes mellitus Qualifiers: Diabetes mellitus complication status: with unspecified complications Diabetes mellitus [facility] insulin use: without [facility] use Qualified Code(s): E11.8 - Type 2 diabetes mellitus with unspecified complications; 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 Continue current pain management. Due to intravenous fluid and monitor electrolytes. Discontinue banana bag and start oral thiamine and multivitamin supplements. Discontinue Levaquin and begin ampicillin intravenously for enterococcus UTI. Continue supportive care.
[2016-07-27] MEDS ORDERED: LORAZEPAM INJ 2 MG/1 ML VIAL IV ONE (11:30)
[2016-07-27] MEDS ORDERED: FOLIC ACID 1 MG TABLET PO ONE (11:30)
[2016-07-27] MEDS ORDERED: THIAMINE HCL 100 MG TABLET PO ONE (11:30)
[2016-07-27] MEDS ORDERED: MULTIVITAMIN TABLET PO ONE (11:30)
[2016-07-27] MEDS: MORPHINE SULFATE SR 30 MG TABLET PO SCH ×2 (11:38→21:21)
[2016-07-27] MEDS: DOCUSATE SODIUM 100 MG CAPSULE PO SCH ×2 (11:41→17:11)
[2016-07-27] MEDS: CLOTRIMAZOLE/BETAMETHASONE DIP CREAM 15 GM TOP SCH ×2 (11:48→17:14)
[2016-07-27] MEDS: AMPICILLIN SODIUM/SULBACTAM NA 1.5 GM in NORMAL SALINE 50 ML IV SCH ×3 (13:30→23:43)
[2016-07-27] MEDS ORDERED: DEXTROSE 5%-WATER 1000 ML 1,000 ML IV PRN (15:56)
[2016-07-27] MEDS: MINERAL OIL/PETROLATUM,WHITE CREAM 114 GM TP SCH (17:14)
[2016-07-27] MEDS: OXYCODONE HCL IR 5 MG TABLET PO PRN (19:13)
[2016-07-27] MEDS: ROPINIROLE HCL 2 MG TABLET PO SCH (21:22)
[2016-07-28] MEDS: LORAZEPAM INJ 2 MG/1 ML VIAL IV SCH ×3 (03:02→14:53)
[2016-07-28 05:35] LABS: ANION GAP 12 (5-19); BLOOD UREA NITROGEN 14 mg/dL (7-20); CALCIUM 8.5 mg/dL (8.4-10.2); CARBON DIOXIDE 22 mmol/L (22-30); CHLORIDE 106 mmol/L (98-107); CREATININE RESULT 0.76 mg/dL (0.52-1.25); GLUCOSE 175 mg/dL (75-110); POTASSIUM 3.9 mmol/L (3.6-5.0); SODIUM 140.1 mmol/L (137-145)
[2016-07-28] MEDS: AMPICILLIN SODIUM/SULBACTAM NA 1.5 GM in NORMAL SALINE 50 ML IV SCH ×2 (06:07→11:43)
[2016-07-28] MEDS: HEPARIN SOD (PORCINE) 5,000 UNIT/ML 1 ML SYRINGE SUBCUT SCH ×3 (06:12→23:23)
[2016-07-28] MEDS: INSULIN REG, HUMAN 100 UNIT/ML 3 ML VIAL (PYX) SUBCUT PRN ×3 (07:59→17:19)
[2016-07-28] MEDS: CLOTRIMAZOLE/BETAMETHASONE DIP CREAM 15 GM TOP SCH ×2 (09:05→17:21)
[2016-07-28] MEDS: DOCUSATE SODIUM 100 MG CAPSULE PO SCH ×2 (09:07→17:19)
[2016-07-28] MEDS: MULTIVITAMIN TABLET PO SCH (09:08)
[2016-07-28] MEDS: THIAMINE HCL 100 MG TABLET PO SCH (09:12)
[2016-07-28] MEDS: FOLIC ACID 1 MG TABLET PO SCH (09:12)
[2016-07-28] MEDS: MORPHINE SULFATE SR 30 MG TABLET PO SCH ×2 (09:12→23:20)
--- NOTE | 2016-07-28 15:19 | PDOC PROGRESS REPORT ---
Subjective Progress Note for:: 07/28/16 Subjective:: He is now awake and alert, able to take oral intake, patient denies shortness of breath, tremors, abdominal pain, nausea or vomiting, fever or chills, chest pain. Patient has a lot of back pain and wants to ambulate around. Physical Exam Vital Signs: Temp Pulse Resp BP Pulse Ox 98.4 F 96 20 137/88 H 99 07/28/16 12:43 07/28/16 12:43 07/28/16 12:43 07/28/16 12:43 07/28/16 12:43 Intake & Output 07/27/16 07/28/16 07/29/16 06:59 06:59 06:59 Intake Total 3713 2587 750 Output Total 1550 1400 425 Balance 2163 1187 325 Weight 115.3 kg 115.5 kg General appearance: PRESENT: no acute distress, cooperative, morbidly obese Head exam: PRESENT: normocephalic Eye exam: PRESENT: EOMI Mouth exam: PRESENT: moist, neck supple Neck exam: ABSENT: JVD Respiratory exam: PRESENT: clear to auscultation minor Cardiovascular exam: PRESENT: RRR. ABSENT: gallop GI/Abdominal exam: PRESENT: hypoactive bowel sounds, soft. ABSENT: distended - Obese, tenderness Extremities exam: PRESENT: other - Trace lower extremity edema Neurological exam: PRESENT: alert, awake, oriented to person, oriented to place , oriented to time, oriented to situation Psychiatric exam: ABSENT: agitated Focused psych exam: ABSENT: restlessness Skin exam: PRESENT: dry, warm, other - Multiple skin abrasions and scratches stable.. ABSENT: cyanosis Results Laboratory Results: 07/27/16 03:58 07/28/16 03:58 07/28/16 03:58 Sodium 140.1 Potassium 3.9 Chloride 106 Carbon Dioxide 22 Anion Gap 12 BUN 14 Creatinine 0.76 Est GFR ( Amer) > 60 Est GFR (Non-Af Amer) > 60 Glucose 175 H Calcium 8.5 Impressions: Chest X-Ray 07/24/16 07:39 IMPRESSION: Cardiomegaly. Lower cervical fusion. No acute findings Head CT 07/24/16 07:39 IMPRESSION: No acute abnormality in the brain. Limited or Localized CT 07/24/16 07:39 IMPRESSION: Cirrhosis. Small umbilical hernia. No acute findings. KUB X-Ray 07/26/16 00:00 IMPRESSION: Ileus. Assessment & Plan - Diagnosis (1) Acute renal failure Qualifiers: Acute renal failure type: unspecified Qualified Code(s): N17.9 - Acute kidney failure, unspecified Is this a current diagnosis for this admission?: Yes (2) Altered mental status Qualifiers: Altered mental status type: unspecified Qualified Code(s): R41.82 - Altered mental status, unspecified Is this a current diagnosis for this admission?: Yes (3) Hyperkalemia Is this a current diagnosis for this admission?: Yes (4) Chronic back pain Qualifiers: Back pain location: back pain in unspecified location Back pain laterality: unspecified Qualified Code(s): M54.9 - Dorsalgia, unspecified; G89.29 - Other chronic pain Is this a current diagnosis for this admission?: Yes (5) Elevated CK Is this a current diagnosis for this admission?: Yes (6) Abnormal urinalysis Is this a current diagnosis for this admission?: Yes (7) Heme positive stool Is this a current diagnosis for this admission?: Yes (8) Restless leg syndrome Is this a current diagnosis for this admission?: Yes (9) Type II diabetes mellitus Qualifiers: Diabetes mellitus complication status: with unspecified complications Diabetes mellitus [facility] insulin use: without [facility] use Qualified Code(s): E11.8 - Type 2 diabetes mellitus with unspecified complications; Z79.4 - intermediate (current) use of insulin Is this a current diagnosis for this admission?: Yes (10) Neuropathic pain Is this a current diagnosis for this admission?: Yes (11) Hypertension Qualifiers: Hypertension type: essential hypertension Qualified Code(s): I10 - Essential (primary) hypertension Is this a current diagnosis for this admission?: Yes (12) Psoriasis Is this a current diagnosis for this admission?: Yes - Time Time Spent with patient: 25-34 minutes - Plan Summary Plan Summary: Out of bed to chair. We will discontinue scheduled Ativan. Continue when necessary Ativan. Discontinue Mathur catheter. Obtain physical therapy. wants the patient to go to rehabilitation for PT but patient does not want to. However patient will agree if physical therapy recommends subacute rehabilitation. Family agrees with the plan. We will change intravenous antibiotics to oral. We will continue to monitor.
--- NOTE | 2016-07-28 15:21 | Progress Note ---
Provider Note Provider Note: Addendum to the plan and progress note progress note: In terms of the patient's heme-positive stools, hemoglobin and hematocrit stable, outpatient GI consultation for endoscopy can be performed.
[2016-07-28] MEDS: OXYCODONE HCL IR 5 MG TABLET PO PRN (16:04)
[2016-07-28] MEDS: MINERAL OIL/PETROLATUM,WHITE CREAM 114 GM TP SCH (17:19)
[2016-07-28] MEDS: AMPICILLIN TRIHYD 500 MG CAPSULE PO SCH ×2 (17:19→23:21)
[2016-07-28] MEDS: ROPINIROLE HCL 2 MG TABLET PO SCH (23:21)
[2016-07-29] MEDS: OXYCODONE HCL IR 5 MG TABLET PO PRN ×3 (00:05→14:23)
[2016-07-29] MEDS: AMPICILLIN TRIHYD 500 MG CAPSULE PO SCH ×3 (07:16→17:31)
[2016-07-29] MEDS: HEPARIN SOD (PORCINE) 5,000 UNIT/ML 1 ML SYRINGE SUBCUT SCH ×2 (07:16→14:25)
[2016-07-29] MEDS: ROPINIROLE HCL 2 MG TABLET PO SCH ×2 (07:16→14:24)
[2016-07-29] MEDS: FOLIC ACID 1 MG TABLET PO SCH (09:53)
[2016-07-29] MEDS: DOCUSATE SODIUM 100 MG CAPSULE PO SCH ×2 (09:53→17:30)
[2016-07-29] MEDS: THIAMINE HCL 100 MG TABLET PO SCH (09:53)
[2016-07-29] MEDS: CLOTRIMAZOLE/BETAMETHASONE DIP CREAM 15 GM TOP SCH ×2 (09:53→17:30)
[2016-07-29] MEDS: MORPHINE SULFATE SR 30 MG TABLET PO SCH (09:53)
[2016-07-29] MEDS: MULTIVITAMIN TABLET PO SCH (09:54)
[2016-07-29] MEDS: INSULIN REG, HUMAN 100 UNIT/ML 3 ML VIAL (PYX) SUBCUT PRN ×2 (12:22→16:37)
--- NOTE | 2016-07-29 16:07 | PDOC DISCHARGE SUMMARY ---
General - Admit/Disc Date/PCP Admission Date/Primary Care Provider: 07/24/16 14:03 Discharge Date: 07/29/16 - Discharge Diagnosis (1) Acute renal failure Is this a current diagnosis for this admission?: YesSummary: Resolved with IV fluids. (2) Urinary tract infection Is this a current diagnosis for this admission?: YesSummary: Patient has grown out enterococcus from urine culture. (4) Alcohol abuse Is this a current diagnosis for this admission?: Yes (5) Altered mental status Is this a current diagnosis for this admission?: YesSummary: Resolved. Most likely secondary to both alcohol and acute infection. (6) Hyperkalemia Is this a current diagnosis for this admission?: YesSummary: Resolved with IV fluids (7) Hypernatremia Is this a current diagnosis for this admission?: Yes (8) Hypertension Is this a current diagnosis for this admission?: Yes (9) Neuropathic pain Is this a current diagnosis for this admission?: Yes (10) Rhabdomyolysis Is this a current diagnosis for this admission?: Yes (11) Type II diabetes mellitus Is this a current diagnosis for this admission?: Yes - Additional Information Resuscitation Status: Full Code Discharge Diet: Diabetic Discharge Activity: Activity As Tolerated Home Medications: Lisinopril [Prinivil] 20 mg PO DAILY 07/24/16 Metformin HCl [Glucophage] 500 mg PO BIDBS 07/24/16 Ropinirole HCl [Requip] 4 mg PO TID 07/24/16 Sildenafil Citrate [Viagra] 100 mg PO DAILY 07/24/16 Triamcinolone Acetonide [Aristocort 0.1% Cream] 1 applic TP BID 07/24/16 Ampicillin Trihydrate [Princepen 500 mg Capsule] 500 mg PO Q6 #20 capsule Morphine Sulfate [Morphine Sulfate ER] 30 mg PO Q12 #60 tablet.er 07/29/16 Oxycodone HCl 20 mg PO Q6HP PRN #20 tablet 07/29/16 History of Present Illness History of Present Illness: LAMONTE PENN is a 56 year old male with a history of alcohol abuse who did not respond to the phone and the patient's son went to the house and he was found on the floor unresponsive. The patient was noted have urinary tract infection as well as acute renal failure secondary to dehydration. Hospital Course Hospital Course: 56-year-old gentleman who presented with acute encephalopathy, urinary tract infection and dehydration with acute renal failure. The patient was treated with IV fluids as well as IV antibiotics and had improvement in his mental status. He also was treated with IV Ativan for the possibility of withdrawals from alcohol. The patient ended up growing out enterococcus from the patient's cultures. The patient's mental status improved and he was alert and oriented 3 on day of discharge. Patient discharged home and will follow-up with his primary care for evaluation of anemia found during this hospitalization. Physical Exam Vital Signs: Temp Pulse Resp BP Pulse Ox 98.2 F 115 H 18 136/91 H 99 07/29/16 11:24 07/29/16 14:00 07/29/16 11:24 07/29/16 11:24 07/29/16 11:24 Intake & Output 07/28/16 07/29/16 07/30/16 06:59 06:59 06:59 Intake Total 2587 2451 459 Output Total 1400 2425 Balance 1187 26 459 Weight 114.7 kg General appearance: PRESENT: no acute distress Eye exam: PRESENT: conjunctiva pink. ABSENT: scleral icterus Mouth exam: PRESENT: moist, tongue midline Neck exam: ABSENT: carotid bruit, JVD, lymphadenopathy, thyromegaly Respiratory exam: PRESENT: clear to auscultation minor. ABSENT: rales, rhonchi, wheezes Cardiovascular exam: PRESENT: RRR. ABSENT: diastolic murmur, rubs, systolic murmur GI/Abdominal exam: PRESENT: normal bowel sounds, soft. ABSENT: distended, guarding, mass, organolmegaly, rebound, tenderness Extremities exam: ABSENT: calf tenderness, clubbing, pedal edema Neurological exam: PRESENT: alert, awake, oriented to person, oriented to place , oriented to time. ABSENT: oriented to situation Psychiatric exam: PRESENT: flat affect Skin exam: PRESENT: abrasion - Multiple small abrasions. Results Laboratory Results: 07/27/16 03:58 07/28/16 03:58 07/24/16 14:50 Blood Blood Culture - Final NO GROWTH IN 5 DAYS Impressions: Chest X-Ray 07/24/16 07:39 IMPRESSION: Cardiomegaly. Lower cervical fusion. No acute findings Head CT 07/24/16 07:39 IMPRESSION: No acute abnormality in the brain. Limited or Localized CT 07/24/16 07:39 IMPRESSION: Cirrhosis. Small umbilical hernia. No acute findings. KUB X-Ray 07/26/16 00:00 IMPRESSION: Ileus. Qualifiers PATEINT BEING DISCHARGED WITH ANY OF THE FOLLOWING DIAGNOSIS?: No Plan Discharge Plan: Patient is discharged home in stable condition. He will follow-up with primary care in 1 week.
[2016-07-29 17:29] VITALS: BP 145/89
[2016-07-29] MEDS: MINERAL OIL/PETROLATUM,WHITE CREAM 114 GM TP SCH (17:32)
== END 2016-07-29 18:49 | disposition home or self-care (01) | DRG 682 ==
LOC: ER 01:06 → UNDOADMIN 11:29 → EH 11:29 → 3S 07-25 09:20
DX: N17.9 Acute kidney failure, unspecified (principal); G93.41 Metabolic encephalopathy; N39.0 Urinary tract infection, site not specified; E87.0 Hyperosmolality and hypernatremia; M62.82 Rhabdomyolysis; E87.2 Acidosis; F11.20 Opioid dependence, uncomplicated; I10 Essential (primary) hypertension; E87.5 Hyperkalemia; E86.0 Dehydration; M54.9 Dorsalgia, unspecified; G89.4 Chronic pain syndrome; G25.81 Restless legs syndrome; F17.200 Nicotine dependence, unspecified, uncomplicated; L40.9 Psoriasis, unspecified; E66.01 Morbid (severe) obesity due to excess calories; Z68.36 Body mass index [BMI] 36.0-36.9, adult; B95.2 Enterococcus as the cause of diseases classified elsewhere; T14.8 Other injury of unspecified body region; X58.XXXA Exposure to other specified factors, initial encounter; R19.5 Other fecal abnormalities; E11.40 Type 2 diabetes mellitus with diabetic neuropathy, unspecified; R31.29 Other microscopic hematuria; F10.10 Alcohol abuse, uncomplicated; D64.9 Anemia, unspecified; Z78.1 Physical restraint status; Z79.84 Long term (current) use of oral hypoglycemic drugs; Z82.49 Family history of ischemic heart disease and other diseases of the circulatory system
CPT/HCPCS: 36415; 70450; 71010; 74000; 76380; 80048; 80053; 80307; 81001; 82140; 82272; 82550; 82553; 82803; 82962; 83036; 83605; 83690; 83735; 83880; 84100; 84439; 84443; 84484; 85025; 85027; 85610; 85730; 87040; 87086; 87088; 87186; 93005; 93010; 96361; 96365; 96375; 99291; G8978-GP; G8979-GP; J0295; J0610; J0696; J1644; J1815; J2060; J2405; J3411; J3490; J7030; J7060; S0164

== ENCOUNTER → 2016-08-13 | Outpatient (CLI) | payer MEDICARE ==
[2016-08-13 14:43] LABS: ANION GAP 12 (5-19); BLOOD UREA NITROGEN 30 mg/dL (7-20); CALCIUM 10.2 mg/dL (8.4-10.2); CARBON DIOXIDE 24 mmol/L (22-30); CHLORIDE 104 mmol/L (98-107); CREATININE RESULT 0.74 mg/dL (0.52-1.25); GLUCOSE 118 mg/dL (75-110); SODIUM 140.4 mmol/L (137-145)
== END ==
LOC: OD 12:49
PROVIDERS: ATTEND Internal Medicine Nephrology
DX: N17.9 Acute kidney failure, unspecified (principal)
CPT/HCPCS: 36415; 80048

== ENCOUNTER 2016-08-18 08:15 | Emergency (ER) | payer MEDICARE ==
--- NOTE | 2016-08-18 09:19 | ER Document Report ---
ED General - General Chief Complaint: High Blood Sugar Stated Complaint: BLOOD SUGAR PROBLEM Mode of Arrival: Ambulatory Information source: Patient Notes: 56-year-old male history of diabetes was on metformin presents with concerns of high blood sugar. Patient notes that he has not checked his blood sugar in 6 months, check it yesterday and was reading high detected today's reading high and in the 600s. Patient presented with no other symptoms. Denies any increased urination. Patient stating he became nauseous one time and vomited because he was anxious TRAVEL OUTSIDE OF THE [place] IN LAST 30 DAYS: No - HPI Onset: Yesterday Onset/Duration: Sudden Quality of pain: No pain Severity: None Pain Level: Denies Associated symptoms: Nausea, Vomiting Exacerbated by: Denies Relieved by: Denies Similar symptoms previously: No Recently seen / treated by doctor: No - Related Data Allergies/Adverse Reactions: No Known Allergies Allergy (Verified 08/18/16 08:32) Past Medical History - Social History Smoking Status: Never Smoker Cigarette use (# per day): No Chew tobacco use (# tins/day): No Smoking Education Provided: No Frequency of alcohol use: None Drug Abuse: None Family History: CVA, Other - Heart disease Patient has suicidal ideation: No Patient has homicidal ideation: No - Past Medical History Cardiac Medical History: Reports: Hx Hypertension Endocrine Medical History: Reports: Hx Diabetes Mellitus Type 2 Renal/ Medical History: Denies: Hx Peritoneal Dialysis Skin Medical History: Reports Hx Psoriasis Past Surgical History: Reports: Hx Orthopedic Surgery - Spinal fusion cervical spine, Hx Tonsillectomy - Immunizations Hx Diphtheria, Pertussis, Tetanus Vaccination: Yes Review of Systems - Review of Systems Notes: REVIEW OF SYSTEMS: CONSTITUTIONAL : Denies fever, chills, or sweats. Denies recent illness. EENT: Denies eye, ear, throat, or mouth pain or symptoms. Denies nasal or sinus congestion or discharge. Denies throat, tongue, or mouth swelling or difficulty swallowing. CARDIOVASCULAR: Denies chest pain. Denies palpitations or racing or irregular heart beat. Denies ankle edema. RESPIRATORY: Denies cough, cold, or chest congestion. Denies shortness of breath, difficulty breathing, or wheezing. GASTROINTESTINAL: Admits to nausea vomiting GENITOURINARY: Denies difficulty urinating, painful urination, burning, frequency, blood in urine, or discharge. FEMALE GENITOURINARY: Denies vaginal bleeding, heavy or abnormal periods, irregular periods. Denies vaginal discharge or odor. MUSCULOSKELETAL: Denies back or neck pain or stiffness. Denies joint pain or swelling. SKIN: Denies rash, lesions or sores. HEMATOLOGIC : Denies easy bruising or bleeding. LYMPHATIC: Denies swollen, enlarged glands. NEUROLOGICAL: Denies confusion or altered mental status. Denies passing out or loss of consciousness. Denies dizziness or lightheadedness. Denies headache. Denies weakness or paralysis or loss of use of either side. Denies problems with gait or speech. Denies sensory loss, numbness, or tingling. Denies seizures. PSYCHIATRIC: Denies anxiety or stress. Denies depression, suicidal ideation, or homicidal ideation. ALL OTHER SYSTEMS REVIEWED AND NEGATIVE. Dictation was performed using [employer] voice recognition software PHYSICAL EXAMINATION: GENERAL: Well-appearing, well-nourished and in no acute distress. HEAD: Atraumatic, normocephalic. EYES: Pupils equal round and reactive to light, extraocular movements intact, conjunctiva are normal. ENT: Nares patent, oropharynx clear without exudates. Moist mucous membranes. NECK: Normal range of motion, supple without lymphadenopathy LUNGS: Breath sounds clear to auscultation bilaterally and equal. No wheezes rales or rhonchi. HEART: Regular rate and rhythm without murmurs ABDOMEN: Soft, nontender, nondistended abdomen. No guarding, no rebound. No masses appreciated. Female : deferred Musculoskeletal: Normal range of motion, no pitting or edema. No cyanosis. NEUROLOGICAL: Cranial nerves grossly intact. Normal speech, normal gait. Normal sensory, motor exams PSYCH: Normal mood, normal affect. SKIN: Warm, Dry, normal turgor, no rashes or lesions noted. Physical Exam - Vital signs Vitals: Resp 20 08/18/16 08:40 Course - Re-evaluation Re-evalutation: 08/18/16 09:15 Pt blood sugar was checked here and noted ot be 120, when he checked with his machine it noted to be 550. I believe the patients concern is secondary to this malfunction. 08/18/16 09:20 After performing a Medical Screening Examination, I estimate there is LOW risk for ACUTE CORONARY SYNDROME, RESPIRATORY FAILURE, SEPSIS OR MENINGITIS, thus I consider the discharge disposition reasonable. The patient and I have discussed the diagnosis and risks, and we agree with discharging home with close follow- up. We also discussed returning to the Emergency Department immediately if new or worsening symptoms occur. We have discussed the symptoms which are most concerning (e.g., changing or worsening pain, trouble swallowing or breathing, neck stiffness, fever) that necessitate immediate return. - Vital Signs Vital signs: Temp Pulse Resp BP Pulse Ox 99.4 F 112 H 18 118/62 97 08/18/16 08:41 08/18/16 08:41 08/18/16 08:41 08/18/16 08:41 08/18/16 08:41 Discharge - Discharge Clinical Impression: Elevated blood sugar Condition: Stable Disposition: HOME, SELF-CARE Instructions: Diabetes ([facility]) Additional Instructions: Please follow-up with your primary care physician for reevaluation
[2016-08-18 09:28] VITALS: BP 103/58
== END 2016-08-18 10:03 | disposition home or self-care (01) ==
LOC: ER 08:15
DX: E11.65 Type 2 diabetes mellitus with hyperglycemia (principal)
CPT/HCPCS: 82962; 99283

== ENCOUNTER → 2016-11-19 | Outpatient (CLI) | payer MEDICARE ==
[2016-11-19 18:29] LABS: HEMATOCRIT 35.6 % (37.9-51.0); HEMOGLOBIN 11.9 g/dL (13.5-17.0); HGB HCT DIFFERENCE 0.1; MEAN CORPUSCULAR HEMOGLOBIN 29.7 pg (27.0-33.4); MEAN CORPUSCULAR HGB CONC 33.4 g/dL (32.0-36.0); MEAN CORPUSCULAR VOLUME 89 fl (80-97); RED CELL DISTRIBUTION WIDTH 15.3 % (11.5-14.0)
[2016-11-19 18:42] LABS: APPEARANCE,URINE CLEAR; BILIRUBIN,URINE NEGATIVE (NEGATIVE); GLUCOSE, URINE NEGATIVE (NEGATIVE); KETONES,URINE NEGATIVE (NEGATIVE); LEUKOCYTE ESTERASE,URINE NEGATIVE (NEGATIVE); NITRITE,URINE NEGATIVE (NEGATIVE); PROTEIN,URINE NEGATIVE (NEGATIVE); URINE SPECIFIC GRAVITY 1.015; UROBILINOGEN,URINE NEGATIVE mg/dL (<2.0)
[2016-11-19 18:44] LABS: ALANINE AMINOTRANSFERASE 48 U/L (21-72); ALBUMIN 4.4 g/dL (3.5-5.0); ALKALINE PHOSPHATASE 129 U/L (38-126); ANION GAP 15 (5-19); ASPARTATE AMINO TRANSFERASE 33 U/L (17-59); BILIRUBIN,DIRECT 0.4 mg/dL (0.0-0.4); BILIRUBIN,TOTAL 0.6 mg/dL (0.2-1.3); BLOOD UREA NITROGEN 16 mg/dL (7-20); CARBON DIOXIDE 22 mmol/L (22-30); CHLORIDE 104 mmol/L (98-107); CREATININE RESULT 0.65 mg/dL (0.52-1.25); GLUCOSE 92 mg/dL (75-110); POTASSIUM 4.7 mmol/L (3.6-5.0); SODIUM 140.9 mmol/L (137-145); TOTAL PROTEIN 9.3 g/dL (6.3-8.2)
== END ==
LOC: OD 17:05
PROVIDERS: ATTEND Physician Assistant Medical
DX: E11.9 Type 2 diabetes mellitus without complications (principal); I10 Essential (primary) hypertension; N17.9 Acute kidney failure, unspecified
CPT/HCPCS: 36415; 80053; 81001; 85027

== ENCOUNTER → 2017-04-24 | Outpatient (CLI) | payer MEDICARE | LOC: OD 11:36 | DX: L40.50 Arthropathic psoriasis, unspecified (principal); M79.7 Fibromyalgia; Z79.899 Other long term (current) drug therapy | CPT/HCPCS: 36415; 86256 ==

== ENCOUNTER → 2017-06-17 | Outpatient (CLI) | payer MEDICARE ==
[2017-06-17 12:18] LABS: HEMATOCRIT 39.2 % (37.9-51.0); HEMOGLOBIN 13.2 g/dL (13.5-17.0); MEAN CORPUSCULAR HEMOGLOBIN 30.6 pg (27.0-33.4); MEAN CORPUSCULAR HGB CONC 33.7 g/dL (32.0-36.0); MEAN CORPUSCULAR VOLUME 91 fl (80-97); PLATELET COUNT 221 10^3/uL (150-450); RED BLOOD COUNT 4.31 10^6/uL (4.35-5.55); RED CELL DISTRIBUTION WIDTH 14.9 % (11.5-14.0); WHITE BLOOD COUNT 5.4 10^3/uL (4.0-10.5)
[2017-06-17 12:45] LABS: ALANINE AMINOTRANSFERASE 161 U/L (21-72); ALBUMIN 4.6 g/dL (3.5-5.0); ALKALINE PHOSPHATASE 118 U/L (38-126); ANION GAP 13 (5-19); ASPARTATE AMINO TRANSFERASE 115 U/L (17-59); BILIRUBIN,DIRECT 0.4 mg/dL (0.0-0.4); BILIRUBIN,TOTAL 0.5 mg/dL (0.2-1.3); BLOOD UREA NITROGEN 21 mg/dL (7-20); CALCIUM 10.2 mg/dL (8.4-10.2); CARBON DIOXIDE 27 mmol/L (22-30); CHLORIDE 102 mmol/L (98-107); GLUCOSE 143 mg/dL (75-110); POTASSIUM 4.9 mmol/L (3.6-5.0); SODIUM 142.3 mmol/L (137-145); TOTAL PROTEIN 8.7 g/dL (6.3-8.2)
== END ==
LOC: OD 11:25
PROVIDERS: ATTEND Physician Assistant Surgical
DX: F10.20 Alcohol dependence, uncomplicated (principal); R94.5 Abnormal results of liver function studies
CPT/HCPCS: 36415; 80053; 85027

== ENCOUNTER → 2017-06-17 | Outpatient (CLI) | payer MEDICARE ==
--- NOTE | 2017-06-17 15:20 | RADIOLOGY REPORT (SQ) ---
EXAM DESCRIPTION: U/S ABDOMEN LIMITED W/O DOP COMPLETED DATE/TIME: 06/17/2017 11:28 am REASON FOR STUDY: ABN LFT (R94.5), CIRRHOSIS (ALCOHOLIC ) OF LIVER W/O ASCITES (K70.30) R94.5 ABNOR MAL RESULTS OF LIVER FUNCTION STUDIES K70.30 ALCOHOLIC CIRRHOSIS OF LIVER WITHOUT ASCITES COMPARISON: CT abdomen pelvis 07/24/2016 TECHNIQUE: Dynamic and static grayscale images acquired of the abdomen and recorded on PACS. Additio nal selected color Doppler and spectral images recorded. LIMITATIONS: Large patient, midline bowel gas FINDINGS: PANCREAS: Midline pancreas unremarkable LIVER: Diffusely echogenic, difficult to penetrate with the ultrasound energy from fatty infiltration or diffuse hepatocellular disease. No gross discrete masses. LIVER VASCULATURE: Normal directional flow of the main portal vein and hepatic veins. GALLBLADDER: No stones. Normal wall thickness. No pericholecystic fluid. ULTRASOUND-DETECTED RICARDO'S SIGN: Negative. INTRAHEPATIC DUCTS AND COMMON DUCT: CBD and intrahepatic ducts normal caliber. No filling defects. INFERIOR VENA CAVA: Normal flow. AORTA: Not well seen RIGHT KIDNEY: Normal size. Normal echogenicity. No solid or suspicious masses. No hydronephrosis. No calcifications. PERITONEAL AND RIGHT PLEURAL SPACE: No ascites or effusions. OTHER: No other significant findings. IMPRESSION: Echogenic normal-sized liver likely from fatty infiltration or diffuse hepatocellular di sease No gallstones No upper abdominal ascites TECHNICAL DOCUMENTATION: JOB ID: [id number]- All Rights Reserved
== END ==
LOC: RAD 09:45
PROVIDERS: ATTEND Internal Medicine Gastroenterology
DX: K70.30 Alcoholic cirrhosis of liver without ascites (principal); R94.5 Abnormal results of liver function studies
CPT/HCPCS: 76705